=== PATIENT | female | born 1995 | race Caucasian/White ===

== ENCOUNTER 2023-01-17 14:33 | Emergency (ER) | payer BC ==
[~2023-01-17] VITALS: Ht 162.5 cm; Wt 96.6 kg
[2023-01-17] MEDS ORDERED: PENICILLIN VK500 MG PO (15:29)
== END 2023-01-17 15:35 | disposition home or self-care (01) ==
LOC: ED 14:33
DX: K04.7 Periapical abscess without sinus (principal)

== ENCOUNTER 2024-05-05 20:01 | Emergency (ER) | payer BC ==
[~2024-05-05] VITALS: Ht 162.5 cm; Wt 99.8 kg
[~2024-05-05 20:01] MED LIST: PENICILLIN VK500 MG PO
[2024-05-05] MEDS ORDERED: ALBUTEROL2.5 MG/0.5 INH (20:21)
[2024-05-05] MEDS ORDERED: Bacitracin Zinc 14 GM TUBE T ONE (20:30)
== END 2024-05-05 20:46 | disposition home or self-care (01) ==
LOC: ED 20:01
DX: S61.012A Laceration without foreign body of left thumb without damage to nail, initial encounter (principal); J45.909 Unspecified asthma, uncomplicated; Z88.8 Allergy status to other drugs, medicaments and biological substances; W26.0XXA Contact with knife, initial encounter; Y93.89 Activity, other specified; Y92.009 Unspecified place in unspecified non-institutional (private) residence as the place of occurrence of the external cause; Y99.8 Other external cause status

== ENCOUNTER 2024-10-15 16:28 | Emergency (ER) | payer BC, MEDICAID ==
[~2024-10-15] VITALS: Ht 162.5 cm; Wt 104.3 kg
[~2024-10-15 16:28] MED LIST changes: +ALBUTEROL2.5 MG/0.5 INH
[2024-10-16] MEDS ORDERED: CIPRO500 MG PO (16:34)
== END 2024-10-15 19:12 | disposition left against medical advice (07) ==
LOC: ED 16:28
DX: R10.2 Pelvic and perineal pain (principal); R30.9 Painful micturition, unspecified; Z53.21 Procedure and treatment not carried out due to patient leaving prior to being seen by health care provider

== ENCOUNTER 2024-10-16 15:53 | Emergency (ER) | payer BC, MEDICAID ==
[~2024-10-16] VITALS: Ht 162.5 cm; Wt 104.3 kg
[2024-10-16 16:23] LABS: BILIRUBIN Negative (Negative); BLOOD Trace-Intact (Negative); CLARITY Clear (Clear); COLOR Dark Yellow (Yellow); KETONE Negative (Negative); LEUKO ESTERASE Trace (Negative); NITRITE Positive (Negative); PH 6.0 (4.5-8.0); SPECIFIC GRAVITY 1.025 (1.001-1.030); UROBILINOGEN 1.0 E.U./dl (0.0-1.0)
[2024-10-16 16:30] LABS: MUCOUS 1+
[2024-10-16] MEDS ORDERED: CIPRO500 MG PO (16:34)
[2024-10-16] MEDS ORDERED: Phenazopyridine Hydrochlorid2 100 MG TAB PO ONE (16:35)
[2024-10-16] MEDS ORDERED: Ciprofloxacin Hydrochloride 500 MG TAB PO ONE ×2 (16:35)
== END 2024-10-16 16:52 | disposition home or self-care (01) ==
LOC: ED 15:53
PROVIDERS: Nurse Practitioner Family
DX: N39.0 Urinary tract infection, site not specified (principal); J45.909 Unspecified asthma, uncomplicated; Z88.5 Allergy status to narcotic agent; Z79.899 Other long term (current) drug therapy

== ENCOUNTER 2024-10-31 02:12 | Emergency (ER) | payer BC ==
[~2024-10-31 02:12] MED LIST changes: +CIPRO500 MG PO
[2024-10-31 02:46] LABS: BASO # 0.1 10*3/uL (0.0-0.1); BASO % 0.7 % (0.0-1.0); BILIRUBIN 1+ (Negative); BLOOD 3+ (Negative); CLARITY Turbid (Clear); COLOR Red (Yellow); EOS # 0.2 10*3/uL (0.0-0.4); EOS % 2.8 % (1.0-4.0); KETONE Negative (Negative); LEUKO ESTERASE 2+ (Negative); MEAN CELL VOLUME 83.8 fl (81.0-99.0); MEAN CORPUSCULAR HGB 27.4 pg (27.0-31.0); MEAN PLATELET VOLUME 9.7 fl (9.6-12.3); MONO # 0.5 10*3/uL (0.1-1.0); MONO % 7.5 % (3.0-9.0); NEUT # 3.7 10*3/uL (2.3-7.9); NEUT % 52.4 % (47.0-73.0); NITRITE Positive (Negative); NUCLEATED RED BLOOD CELL 0.0 % (0.0-0.0); NUCLEATED RED BLOOD CELL 0.0 10*3/uL (0.0-0.0); PH 5.0 (4.5-8.0); PLATELET COUNT AUTOMATED 395 10*3/uL (130-400); RED CELL DISTRI WIDTH 13.3 % (0-14.5); SPECIFIC GRAVITY >= 1.030 (1.001-1.030); UROBILINOGEN 0.2 E.U./dl (0.0-1.0)
[2024-10-31 02:57] LABS: BACTERIA 2+; RBC TNTC rbc/hpf (0-2)
[2024-10-31 02:58] LABS: WBC 21-30 wbc/hpf (0-5)
[2024-10-31] MEDS ORDERED: Ciprofloxacin Hydrochloride 500 MG TAB PO ONE (03:05)
[2024-10-31] MEDS ORDERED: CIPRO500 MG PO (03:08)
== END 2024-10-31 03:14 | disposition home or self-care (01) ==
LOC: ED 02:12
PROVIDERS: Internal Medicine
DX: N39.0 Urinary tract infection, site not specified (principal); N92.0 Excessive and frequent menstruation with regular cycle; F12.90 Cannabis use, unspecified, uncomplicated